=== PATIENT | female | born 1995 | race African-American/Black ===

== ENCOUNTER 2023-05-28 17:13 | Emergency (ER) | payer OTHER ==
[~2023-05-28] VITALS: Ht 172.7 cm; Wt 52.2 kg
[2023-05-28 19:28] LABS: BASOPHILS % (AUTO) 0.7 % (0.0-2.0); EOSINOPHILS # (AUTO) 0.1 K/uL (0.0-0.7); EOSINOPHILS % (AUTO) 1.5 % (0.0-7.0); HEMATOCRIT 33.7 % (31.2-41.9); HEMOGLOBIN 11.2 g/dL (10.9-14.3); LYMPHOCYTES # (AUTO) 0.9 K/uL (0.8-4.8); LYMPHOCYTES % (AUTO) 20.5 % (20.5-51.5); MEAN CORPUSCULAR HEMOGLOBIN 32.3 uug (24.7-32.8); MEAN CORPUSCULAR HGB CONC 33 g/dL (32.3-35.6); MEAN CORPUSCULAR VOLUME 96.9 fL (75.5-95.3); MONOCYTES # (AUTO) 0.7 K/uL (0.1-1.30); NEUTROPHILS # (AUTO) 2.7 K/uL (1.8-8.9); NEUTROPHILS % (AUTO) 61.3 % (38.5-71.5); PLATELET COUNT (AUTO) 224 K/uL (179-408); RED BLOOD CELL COUNT(AUTO) 3.48 MIL/uL (3.63-4.92); RED CELL DISTRIBUTION WIDTH 12.5 % (12.3-17.7); WHITE BLOOD COUNT (AUTO) 4.5 K/uL (3.8-11.8)
[2023-05-28 19:40] LABS: CALCIUM 8.6 mg/dL (8.5-10.1); CARBON DIOXIDE 24 mmol/L (21-32); CHLORIDE 103 mmol/L (98-107); CREATININE 0.6 mg/dL (0.6-1.3); GLUCOSE 74 mg/dL (74-106); POTASSIUM 3.4 mmol/L (3.5-5.1); SODIUM SERUM 139 mmol/L (136-145); UREA NITROGEN, BLOOD 10 mg/dL (7-18)
[2023-05-28 19:45] LABS: DIFFERENTIAL COMMENT 1
[2023-05-28 19:49] LABS: ALANINE AMINOTRANSFERASE 9 U/L (14-59); ALKALINE PHOSPHATASE 46 U/L (50-136); ASPARTATE AMINOTRANSFERASE 8 U/L (15-37); BILIRUBIN,DIRECT 0.3 mg/dL (0.0-0.2); BILIRUBIN,TOTAL 1.6 mg/dL (0.2-1.0); TOTAL PROTEIN, SERUM 7.8 g/dL (6.4-8.2)
[2023-05-28 21:38] LABS: *BILIRUBIN,URIN NEGATIVE (NEGATIVE); *BLOOD, URINE 2+ (NEGATIVE); *CLARITY,URINE CLEAR (CLEAR); *COLOR,URINE YELLOW (YELLOW); *KETONES,URINE 1+ (NEGATIVE); *PROTEIN,URINE NEGATIVE (NEGATIVE); *UROBILINOGEN,URINE 0.2 E.U./dl (NORMAL); LEUKOCYTE ESTERASE ,URINE NEGATIVE (NEGATIVE); NITRITE, URINE NEGATIVE (NEGATIVE); PH,URINE 5.5 (5.0-8.0); UGLUCOSE NEGATIVE (NEGATIVE)
[2023-05-28] MEDS ORDERED: IBUP-1957 PO (21:57)
[2023-05-28] MEDS ORDERED: IBUPROFEN 800 MG TABLET ONE (22:07)
[2023-05-28 22:10] LABS: BACTERIA,URINE FEW /HPF (NONE SEEN); SQUAMOUS EPITHELIAL CELL,UR MANY /HPF (NONE SEEN); WBC,URINE NONE SEEN /HPF (0-3)
[2023-05-28 22:11] LABS: ANISOCYTOSIS 1+; BAND % (MANUAL) 7 % (0-10); LYMPHOCYTES % (MANUAL) 20 % (20-40); MONOCYTES % (MANUAL) 18 % (2-10); NEUTROPHILS % (MANUAL) 54 % (42-75); REACTIVE LYMPHOCYTES 1 % (0-0)
[2023-05-28] MEDS: IBUPROFEN 800 MG TABLET PO ONE (22:15)
[2023-05-28 22:16] VITALS: BP 118/70; TEMP 98; O2SAT 99
== END 2023-05-28 22:17 | disposition home or self-care (01) ==
LOC: ER 17:15
DX: N83.201 Unspecified ovarian cyst, right side (principal); R10.2 Pelvic and perineal pain; Z79.899 Other long term (current) drug therapy; Z20.822 Contact with and (suspected) exposure to COVID-19
CPT/HCPCS: 36415; 70030-TC; 71045; 76856; 83605; 84484; 85025; 85730; 93005; A4606; A4663